=== PATIENT | male | born 1930 | race Two or more races ===

== ENCOUNTER 2017-01-02 14:25 | Inpatient (IN) | payer MEDICARE, OTHER ==
[~2017-01-02] VITALS: Ht 160 cm; Wt 41.7 kg
[2017-01-03] MEDS ORDERED: Z GUARD REMEDY PASTE 57 GM TUBE TOP PRN (17:30)
[2017-01-03] MEDS ORDERED: CARV3.122 PO ×2 (17:53)
[2017-01-03] MEDS ORDERED: DEXT15DR6 OP (17:53)
[2017-01-03] MEDS ORDERED: OXYC-128 PO ×2 (17:53→20:20)
[2017-01-03] MEDS ORDERED: ONDA4TAB5 GT (17:53)
[2017-01-03] MEDS ORDERED: MAGN30OR PO (17:53)
[2017-01-03] MEDS ORDERED: ZOLP5TAB8 PO (17:53)
[2017-01-03] MEDS ORDERED: FURO40SO PO (17:53)
[2017-01-03] MEDS ORDERED: LATA2.5D7 OP (17:53)
[2017-01-03] MEDS ORDERED: ASPI81TA44 PO (17:53)
[2017-01-03] MEDS ORDERED: OXYC-133 PO (17:53)
[2017-01-03] MEDS ORDERED: LISI2.5T2 PO (17:53)
[2017-01-03] MEDS ORDERED: ACET-2154 PO (17:53)
[2017-01-03] MEDS ORDERED: HYDR-3326 PO (17:53)
[2017-01-03] MEDS ORDERED: RIVA10TA PO (17:53)
[2017-01-03] MEDS ORDERED: POLY255P2 PO (17:53)
--- NOTE | 2017-01-03 19:30 | NUR ---
RECEIVED PATIENT AWAKE, ALERT, AND ORIENTED X3 WHEN SPOKEN TO BY HIS FAMILY IN [facility]. FOLLOWS COMMANDS.NO C/O DISCOMFORT OR PAIN AT THIS TIME. APPEARS COMFORTABLE IN BED. FAMILY AT BEDSIDE WITH ALL QUESTIONS ANSWERED.PLAN OF CARE DISCUSSED.ORIENTED PATIENT TO CALL LIGHT, TV, LIGHTS, AND ARU ROUTINE. CALL LIGHT WITHIN REACH AAT. BED ALARM ON AAT. SCD'S APPLIED BILATERALLY FOR VTE PROPHYLAXIS.
[2017-01-03 20:02] VITALS: BP 111/50
[2017-01-03] MEDS ORDERED: ALBU2.5V38 IH (20:12)
[2017-01-03] MEDS ORDERED: BISA-79 RC (20:12)
[2017-01-03] MEDS ORDERED: CARB1DRO5 OP (20:12)
[2017-01-03] MEDS ORDERED: MAGN400O6 PO (20:40)
[2017-01-03] MEDS ORDERED: BISA10SU8 RC (20:41)
[2017-01-03] MEDS ORDERED: OXYCODONE/APAP 5-325 MG TABLET PO PRN ×2 (20:45)
[2017-01-03] MEDS ORDERED: MAGNESIUM HYDROXIDE 30 ML LIQUID UDC PO PRN ×2 (20:45)
[2017-01-03] MEDS ORDERED: CARBOXYMETHYLCELLULOSE SODIUM DROPERETTE EACHEYE PRN (20:45)
[2017-01-03] MEDS ORDERED: BISACODYL 5 MG TABLET.DR PO PRN (20:45)
[2017-01-03] MEDS ORDERED: BISACODYL 10 MG SUPP.RECT RC PRN (20:45)
[2017-01-03] MEDS ORDERED: MIRALAX 17 GM POWD.PACK PO PRN (21:00)
[2017-01-03] MEDS: LATANOPROST OPHT DROP 2.5 ML BOTTLE EACHEYE SCH (21:00)
[2017-01-03] MEDS ORDERED: ZOLPIDEM 5 MG TABLET PO SCH (21:00)
--- NOTE | 2017-01-03 21:00 | NUR ---
2100 EYE GTTS NOT GIVEN PATIENT'S DAUGHTER HAS ALREADY GIVEN THEM.
--- NOTE | 2017-01-03 21:35 | NUR ---
REPORT GIVEN TO YENNIFER FALLON. CARE HANDED OFF OF THIS PATIENT AT THIS TIME
--- NOTE | 2017-01-04 02:06 | NUR ---
Patient complaining of pain from the condom catheter. Removed condom catheter and placed diaper. Ambien also given at this time for sleeplessness. Will continue to monitor
[2017-01-04 07:15] LABS: BASOPHILS % (AUTO) 0.2 % (0.0-2.0); EOSINOPHILS # (AUTO) 0.2 K/uL (0.0-0.7); EOSINOPHILS % (AUTO) 1.7 % (0.0-7.0); HEMATOCRIT 31.4 % (40-50); HEMOGLOBIN 10.7 G/DL (14.0-18.0); LYMPHOCYTES # (AUTO) 0.8 K/UL (0.8-4.8); LYMPHOCYTES % (AUTO) 7.2 % (20.5-51.5); MEAN CORPUSCULAR HGB CONC 34 g/dL (32.0-37.0); MEAN CORPUSCULAR VOLUME 90.8 FL (82.0-92.0); MONOCYTES # (AUTO) 0.7 K/UL (0.1-1.30); MONOCYTES % (AUTO) 6.7 % (0.0-11.0); NEUTROPHILS # (AUTO) 9.4 K/UL (1.8-8.9); NEUTROPHILS % (AUTO) 84.2 % (38.5-71.5); PLATELET COUNT (AUTO) 276 K/UL (150-450); RED BLOOD CELL COUNT(AUTO) 3.46 MIL/UL (4.7-6.1); WHITE BLOOD COUNT (AUTO) 11.1 K/UL (4.0-11.2)
[2017-01-04 07:52] LABS: CARBON DIOXIDE 30 mmol/L (21-32); CHLORIDE 98 mmol/L (98-107); CHOLESTEROL 67 mg/dL (<200); CREATININE 0.7 mg/dL (0.6-1.3); GLUCOSE 143 mg/dL (74-106); HDL CHOLESTEROL 34 mg/dL (40-60); PHOSPHOROUS 2.9 mg/dL (2.5-4.9); POTASSIUM 3.7 mmol/L (3.5-5.1); TRIGLYCERIDES 54 MG/DL (30-150); UREA NITROGEN, BLOOD 31 mg/dL (7-18)
[2017-01-04] MEDS: CARVEDILOL 3.125 MG TABLET PO SCH ×2 (08:00→16:46)
--- NOTE | 2017-01-04 08:30 | NUR ---
PATIENT HANDOFF REPORT FROM NIGHT NURSE. SLEEPING AT THIS TIME.
[2017-01-04] MEDS: ALBUTEROL SULFATE 2.5 MG/3 ML NEBU IH SCH ×5 (08:46→22:32)
[2017-01-04 09:00] VITALS: BP 133/68
[2017-01-04] MEDS ORDERED: POLYETHYLENE GLYCOL 3350 238 GM POWDER PO SCH (09:00)
[2017-01-04] MEDS ORDERED: FUROSEMIDE 40 MG/5 ML LIQUID UDC PO SCH (09:00)
--- NOTE | 2017-01-04 09:30 | NUR ---
PATIENT SLEEPING AT THIS TIME.
[2017-01-04 10:24] LABS: BAND % (MANUAL) 10 % (0-10); EOSINOPHILS % (MANUAL) 2 % (0-8); LYMPHOCYTES % (MANUAL) 8 % (20-40); MONOCYTES % (MANUAL) 4 % (2-10); NEUTROPHILS % (MANUAL) 76 % (42-75)
--- NOTE | 2017-01-04 10:30 | NUR ---
PATIENT SLEEPING AT THIS TIME.
--- NOTE | 2017-01-04 12:05 | NUR ---
PATIENT SLEEPING AT THIS TIME. FAMILY MEMBER, CHANDLER, AT BEDSIDE WITH PATIENT.
--- NOTE | 2017-01-04 12:38 | NUR ---
Civil Engineer SW met with patient at [facility] to assess pt needs and provide support. The patient was lethargic and unable to participate in the interview. The patient's daughter Lana Owens was at patient's bedside and was able to provide information. The patient is an 86 year old male who was admitted s/p fall fracturing his left hip. He underwent ORIF on 12/28/16 at [facility]. He was then transferred to ARU due to impaired mobility and functional decline. The patient was lethargic and appeared to be in pain as he was moaning during the interview with his eyes closed. Per daughter, the patient's sleep and appetite are normally good but he has not been able to eat today. Per daughter, the patient;s usually lives with his son Deep Owens at [[address] [place] [phone]] but has been living with his daughter Lana Owens for the last month at [[address] [place] [id number]]. Social history: The patient was born and raised in [facility] and grew up with his parents. The patient is a retired orthopedic surgeon. He was to his of 45 years and she last year. He has 2 daughters and 1 son. The patient's daughter denied any history of abuse or domestic violence. The patient's daughter denied any history of alcohol or drug abuse. The patient's daughter stated that the patient will return to home with her in [place] upon discharge. SW engaged in active listening and provided supportive counseling during the interview to address patient's depressive symptoms related to his decline in functioning. SW will continue to address issues of loss related to recent hospitalization. SW will encourage compliance with rehab goals. SW will be available as needed.
--- NOTE | 2017-01-04 13:20 | NUR ---
AM ADL CARE PATIENT SLIGHTLY AWAKE AT THIS TIME. FAMILY REQUEST FOR SUPPOSITORY FOR BM, THOUGHT PATIENT MAY BE TRYING TO HAVE BM.
--- NOTE | 2017-01-04 14:37 | NUR ---
REHAB TEAM CONFERENCE 01/04/17
[2017-01-04] MEDS ORDERED: ZOLPIDEM 5 MG TABLET PO PRN (15:15)
--- NOTE | 2017-01-04 16:00 | NUR ---
PATIENT AWAKE AT THIS TIME. VISITING WITH FAMILY.
--- NOTE | 2017-01-04 16:30 | NUR ---
GIVEN ASPIRIN, LASIX, AND XARELTO. HELD COREG FOR PM AND AM WELL LISINOPRIL DUE TO LETHARGY.
[2017-01-04 16:32] VITALS: BP 126/62
[2017-01-04] MEDS: FUROSEMIDE 20 MG TABLET PO SCH (16:40)
[2017-01-04] MEDS: ASPIRIN EC 81 MG TABLET.DR PO SCH (16:40)
[2017-01-04] MEDS: LISINOPRIL 5 MG TABLET PO SCH (16:41)
[2017-01-04] MEDS: RIVAROXABAN 10 MG TABLET PO SCH (16:46)
--- NOTE | 2017-01-04 17:00 | NUR ---
VISIT WITH THERAPY AT BEDSIDE TEACHING FAMILY AT THIS TIME.
--- NOTE | 2017-01-04 18:39 | NUR ---
HANDOFF ENDORSEMENT REPORT TO NIGHT NURSE. PATIENT NEEDS URINALYSIS AND URINE CULTURE.
[2017-01-04 20:05] VITALS: BP 138/77
[2017-01-04 20:49] LABS: *BILIRUBIN,URIN NEGATIVE (NEGATIVE); *BLOOD, URINE 3+ (NEGATIVE); *CLARITY,URINE CLOUDY (CLEAR); *COLOR,URINE YELLOW (YELLOW); *KETONES,URINE NEGATIVE (NEGATIVE); *PROTEIN,URINE 1+ (NEGATIVE); LEUKOCYTE ESTERASE ,URINE 1+ (NEGATIVE); NITRITE, URINE NEGATIVE (NEGATIVE); UGLUCOSE NEGATIVE (NEGATIVE)
[2017-01-04 20:59] LABS: BACTERIA,URINE MANY /HPF (NONE SEEN); WBC,URINE 80-100 /HPF (0-3)
[2017-01-04] MEDS: DOCUSATE SODIUM 100 MG CAPSULE PO SCH (21:10)
[2017-01-04] MEDS: LATANOPROST OPHT DROP 2.5 ML BOTTLE EACHEYE SCH (21:10)
[2017-01-05] MEDS: ACETAMINOPHEN 325 MG TABLET PO PRN (01:08)
[2017-01-05] MEDS: ALBUTEROL SULFATE 2.5 MG/3 ML NEBU IH SCH ×6 (02:33→22:32)
[2017-01-05 07:31] LABS: BILIRUBIN,DIRECT 0.6 mg/dL (0.0-0.2); BILIRUBIN,TOTAL 3.3 mg/dL (0.2-1.0); TOTAL PROTEIN, SERUM 6.5 g/dL (6.4-8.2)
[2017-01-05 08:18] VITALS: BP 110/50
[2017-01-05] MEDS: ASPIRIN EC 81 MG TABLET.DR PO SCH (09:10)
[2017-01-05] MEDS: CARVEDILOL 3.125 MG TABLET PO SCH ×2 (09:10→16:51)
[2017-01-05] MEDS: FUROSEMIDE 20 MG TABLET PO SCH (09:10)
[2017-01-05] MEDS: DOCUSATE SODIUM 100 MG CAPSULE PO SCH ×2 (09:10→21:22)
[2017-01-05] MEDS: LISINOPRIL 5 MG TABLET PO SCH (09:11)
--- NOTE | 2017-01-05 09:15 | NUR ---
PATIENT TO THERAPY ROOM AT THIS TIME VIA WHEELCHAIR WITH FAMILY MEMBER CHANDLER AND THERAPIST
--- NOTE | 2017-01-05 11:15 | NUR ---
PAGE TO PROVIDER, DOCTOR BLAZE, FOLLOW UP ON URINE SPECIMEN RESULTS AND DAILY WEIGHT.
--- NOTE | 2017-01-05 13:00 | NUR ---
PATIENT COMPLAINT OF HEMORRHOIDAL BURNING AT THIS TIME TO IMCU SPECIALIST.
--- NOTE | 2017-01-05 15:00 | NUR ---
SON PRESENT WITH PATIENT. DISCUSSING WIFI CONNECTION FOR HIS APPLICATIONS ON HIS PHONE WITH STAFF MEMBER FROM [employer].
[2017-01-05 16:19] VITALS: BP 114/75
--- NOTE | 2017-01-05 16:45 | NUR ---
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
[2017-01-05] MEDS: RIVAROXABAN 10 MG TABLET PO SCH (16:52)
--- NOTE | 2017-01-05 17:30 | NUR ---
ASSESSMENT OF VITAL SIGNS. SITE OF DRESSING ON LEFT HIP CHANGE. WELL APPOXIMATED SITES X2 WITH MARIO ALBERTO INTACT. FAMILY ASKING ABOUT WHEN TO TAKE OUT. NOTIFIED TO DISCUSS WITH SURGEON DATE OF SURGERY WAS LAST 12/28/16.
--- NOTE | 2017-01-05 18:58 | NUR ---
Handoff report to night nurse at this time follow up urine results.
[2017-01-05 20:16] VITALS: BP 105/55
[2017-01-05] MEDS: SULFAMETH/TRIMETH 800/160 MG TABLET PO SCH (21:25)
[2017-01-05] MEDS: LATANOPROST OPHT DROP 2.5 ML BOTTLE EACHEYE SCH (21:25)
[2017-01-05] MEDS ORDERED: SULFAMETH/TRIMETH 800/160 MG TABLET ONE (21:36)
[2017-01-05] MEDS: HYDROCORTISONE RECTAL SUPP 25 MG EACH RC SCH (21:48)
[2017-01-05] MEDS ORDERED: HYDROCORTISONE RECTAL SUPP 25 MG EACH RC ONE (21:57)
[2017-01-06] MEDS: ALBUTEROL SULFATE 2.5 MG/3 ML NEBU IH SCH ×6 (00:15→20:55)
--- NOTE | 2017-01-06 07:15 | NUR ---
HANDOFF REPORT WITH NIGHT NURSE AT THIS TIME.
[2017-01-06 08:00] VITALS: BP 100/53
[2017-01-06] MEDS: HYDROCORTISONE RECTAL SUPP 25 MG EACH RC SCH ×2 (09:15→20:54)
[2017-01-06] MEDS: DOCUSATE SODIUM 100 MG CAPSULE PO SCH (09:16)
[2017-01-06] MEDS: ASPIRIN EC 81 MG TABLET.DR PO SCH (09:16)
[2017-01-06] MEDS: SULFAMETH/TRIMETH 800/160 MG TABLET PO SCH (09:16)
[2017-01-06] MEDS: FUROSEMIDE 20 MG TABLET PO SCH (09:21)
[2017-01-06] MEDS: CARVEDILOL 3.125 MG TABLET PO SCH ×2 (09:21→17:14)
[2017-01-06] MEDS: LISINOPRIL 5 MG TABLET PO SCH (09:22)
--- NOTE | 2017-01-06 09:45 | NUR ---
PATIENT TO OCCUPATIONAL THERAPY AT THIS TIME.
[2017-01-06 10:30] VITALS: BP 109/55
--- NOTE | 2017-01-06 11:00 | NUR ---
PATIENT RESTING IN BED AT THIS TIME.
[2017-01-06] MEDS: ACETAMINOPHEN 325 MG TABLET PO PRN (11:03)
--- NOTE | 2017-01-06 12:30 | NUR ---
PATIENT GIVEN NITROFURANTOIN. FAMILY EDUCATION TO CHANDLER, AT BEDSIDE REGARDING SIDE EFFECTS AND BACTERIA, E.COLI, PRESENT IN URINE AND PROTECTION MEASURES. SHE REQUESTS PROBIOTICS FOR PATIENT WHILE ON ANTIBIOTICS. NOTIFIED CHANDLER PHP LAMP DEVELOPER WOULD DISCUSS WITH PROVIDER DURING ROUNDS.
[2017-01-06] MEDS: NITROFURANTOIN/NITROFURAN MAC 100 MG CAPSULE PO SCH ×2 (12:31→20:49)
[2017-01-06 12:38] LABS: BASOPHILS % (AUTO) 0.1 % (0.0-2.0); EOSINOPHILS # (AUTO) 0.1 K/uL (0.0-0.7); EOSINOPHILS % (AUTO) 1.9 % (0.0-7.0); HEMATOCRIT 31.9 % (40-50); HEMOGLOBIN 10.6 G/DL (14.0-18.0); LYMPHOCYTES # (AUTO) 0.7 K/UL (0.8-4.8); LYMPHOCYTES % (AUTO) 9.1 % (20.5-51.5); MEAN CORPUSCULAR HEMOGLOBIN 30.5 UUG (27.0-31.0); MEAN CORPUSCULAR HGB CONC 33 g/dL (32.0-37.0); MEAN CORPUSCULAR VOLUME 91.6 FL (82.0-92.0); MONOCYTES # (AUTO) 0.6 K/UL (0.1-1.30); MONOCYTES % (AUTO) 8.6 % (0.0-11.0); NEUTROPHILS # (AUTO) 5.8 K/UL (1.8-8.9); NEUTROPHILS % (AUTO) 80.3 % (38.5-71.5); RED BLOOD CELL COUNT(AUTO) 3.48 MIL/UL (4.7-6.1)
--- NOTE | 2017-01-06 12:45 | NUR ---
PATIENT ASSISTED TO SEATED POSITION WITH PHYSICAL THERAPIST IN WHEELCHAIR AT THIS TIME.
[2017-01-06 12:46] LABS: CARBON DIOXIDE 29 mmol/L (21-32); CHLORIDE 95 mmol/L (98-107); CREATININE 0.9 mg/dL (0.6-1.3); GLUCOSE 144 mg/dL (74-106); MAGNESIUM 1.9 mg/dL (1.8-2.4); PHOSPHOROUS 3.4 mg/dL (2.5-4.9); POTASSIUM 4.2 mmol/L (3.5-5.1); UREA NITROGEN, BLOOD 33 mg/dL (7-18)
[2017-01-06 12:48] LABS: PLATELET COUNT (AUTO) 394 K/UL (150-450); WHITE BLOOD COUNT (AUTO) 7.3 K/UL (4.0-11.2)
[2017-01-06 13:01] LABS: BAND % (MANUAL) 13 % (0-10); EOSINOPHILS % (MANUAL) 1 % (0-8); LYMPHOCYTES % (MANUAL) 6 % (20-40); METAMYELOCYTES % 1 % (0-1); MONOCYTES % (MANUAL) 12 % (2-10); NEUTROPHILS % (MANUAL) 67 % (42-75)
--- NOTE | 2017-01-06 13:23 | NUR ---
PATIENT AT PHYSICAL THERAPY AT THIS TIME.
--- NOTE | 2017-01-06 14:44 | NUR ---
SON OF PATIENT ASKING ABOUT SLOWING THE BOWEL MOVEMENT DOWN AT THIS TIME. ALSO REQUESTING COURSE OF PROBIOTICS WITH ANTIBIOTICS. PATIENT WALKING IN HALLWAY WITH TWO PERSON ASSIST AND WALKER.
--- NOTE | 2017-01-06 17:00 | NUR ---
Visit with Doctor Renata, Georgi, and Anil at bedside. Requests for probiotics and stool softener orders per Doctor Yanez. Doctor Yanez also requests all weights in am at same time with floor scale only.
[2017-01-06 17:03] VITALS: BP 108/60
[2017-01-06] MEDS: RIVAROXABAN 10 MG TABLET PO SCH (17:14)
[2017-01-06] MEDS: ACIDOPHILUS/BULGARICUS CHEW TAB PO SCH (18:10)
--- NOTE | 2017-01-06 18:36 | NUR ---
Handoff report for night nurse.
[2017-01-06 20:12] VITALS: BP 115/64
[2017-01-06] MEDS: LATANOPROST OPHT DROP 2.5 ML BOTTLE EACHEYE SCH (20:49)
[2017-01-07] MEDS: ALBUTEROL SULFATE 2.5 MG/3 ML NEBU IH SCH ×6 (03:30→22:35)
[2017-01-07 07:58] VITALS: BP 126/73
--- NOTE | 2017-01-07 09:00 | NUR ---
HANDOFF ROUNDS 7AM HOUR WITH NIGHT NURSE. PATIENT TOLERATED BREAKFAST WELL. ASSIST WITH BRIEF CHANGE WITH HEAVY EQUIPMENT DIESEL MECHANIC. AM MEDICATION PASS.
[2017-01-07] MEDS: FUROSEMIDE 20 MG TABLET PO SCH (09:07)
[2017-01-07] MEDS: ACIDOPHILUS/BULGARICUS CHEW TAB PO SCH ×2 (09:07→18:53)
[2017-01-07] MEDS: CARVEDILOL 3.125 MG TABLET PO SCH ×2 (09:07→18:52)
[2017-01-07] MEDS: HYDROCORTISONE RECTAL SUPP 25 MG EACH RC SCH ×2 (09:08→21:10)
[2017-01-07] MEDS: LISINOPRIL 5 MG TABLET PO SCH (09:08)
[2017-01-07] MEDS: NITROFURANTOIN/NITROFURAN MAC 100 MG CAPSULE PO SCH ×2 (09:08→21:07)
[2017-01-07] MEDS: ASPIRIN EC 81 MG TABLET.DR PO SCH (09:08)
[2017-01-07] MEDS ORDERED: DOCUSATE SODIUM 100 MG CAPSULE PO SCH (10:00)
--- NOTE | 2017-01-07 10:00 | NUR ---
DOCTOR BRIEN ROUNDS AT THIS TIME.
--- NOTE | 2017-01-07 11:00 | NUR ---
PATIENT UP TO WHEELCHAIR AT THIS TIME. DAUGHTER AND SON AT BEDSIDE.
--- NOTE | 2017-01-07 13:00 | NUR ---
PATIENT ROUNDS. SCD'S REAPPLIED. CALL ZIEGLER WITHIN REACH. BED IN LOW POSITION.
--- NOTE | 2017-01-07 15:00 | NUR ---
PATIENT PROGRESS MADE ON PHYSICAL THERAPY TODAY PER FRANSISCO AT THIS TIME. CHANGED BRIEF. APPLIED HEMMORHOID CREAM PER FAMILY REQUEST.
--- NOTE | 2017-01-07 17:29 | NUR ---
PATIENT DINNER TRAY PASS AT THIS TIME.
[2017-01-07] MEDS: RIVAROXABAN 10 MG TABLET PO SCH (18:55)
[2017-01-07] MEDS: NYSTATIN SUSPENSION 5 ML LIQUID UDC PO SCH (19:12)
--- NOTE | 2017-01-07 19:38 | NUR ---
HANDOFF REPORT FOR NIGHT NURSE.
--- NOTE | 2017-01-07 20:00 | NUR ---
PATIENT IN ROOM LAYING DOWN ON BED A/OX4,ABLE TO FOLLOW COMMANDS. DRESSING ON LEFT HIP CLEAN AND INTACT. NERVE AND CHECKS WITHIN NORMAL LIMIT.PLACED ON ISOLATION PROTOCOL DUE TO ESBL + URINE
[2017-01-07 20:01] VITALS: BP 93/52
[2017-01-07] MEDS: LATANOPROST OPHT DROP 2.5 ML BOTTLE EACHEYE SCH (21:10)
--- NOTE | 2017-01-07 23:45 | NUR ---
RECEIVED PATIENT SLEEPING IN BED. NO ACUTE DISTRESS NOTED. CONTACT PRECAUTION BECAUSE OF ESBL IN URINE. SAFETY INITIATED. CALL LIGHT WITHIN REACH.
[2017-01-08] MEDS: ALBUTEROL SULFATE 2.5 MG/3 ML NEBU IH SCH ×6 (02:45→22:37)
[2017-01-08] MEDS: NYSTATIN SUSPENSION 5 ML LIQUID UDC PO SCH ×3 (05:02→18:24)
--- NOTE | 2017-01-08 06:54 | NUR ---
NO CHANGES T/O SHIFT. NO ACUTE DISTRESS NOTED. PATIENT CONTINUES TO TRY AND REMOVE DVT PUMPS, SURGICAL SITE DRESSING AND HOSPITAL GOWN. RE-ORIENTED NECESSARY. O2 2L NC. PATIENT REMAINS CONFUSED. DRESSING CHANGE PROVIDED. DRESSING C/D/I. SAFETY AND COMFORT MEASURES MAINTAINED T/O SHIFT. ALL NEEDS MET.
[2017-01-08 08:45] VITALS: BP 124/72
[2017-01-08 08:54] LABS: CARBON DIOXIDE 28 mmol/L (21-32); CHLORIDE 96 mmol/L (98-107); GLUCOSE 129 mg/dL (74-106); UREA NITROGEN, BLOOD 28 mg/dL (7-18)
[2017-01-08] MEDS: LISINOPRIL 5 MG TABLET PO SCH (09:06)
[2017-01-08] MEDS: ACIDOPHILUS/BULGARICUS CHEW TAB PO SCH ×2 (09:06→18:26)
[2017-01-08] MEDS: FUROSEMIDE 20 MG TABLET PO SCH (09:08)
[2017-01-08] MEDS: NITROFURANTOIN/NITROFURAN MAC 100 MG CAPSULE PO SCH ×2 (09:08→21:49)
[2017-01-08] MEDS: ASPIRIN EC 81 MG TABLET.DR PO SCH (09:12)
[2017-01-08] MEDS: HYDROCORTISONE RECTAL SUPP 25 MG EACH RC SCH ×2 (09:12→21:00)
[2017-01-08] MEDS: CARVEDILOL 3.125 MG TABLET PO SCH ×2 (09:12→18:26)
[2017-01-08] MEDS: RIVAROXABAN 10 MG TABLET PO SCH (18:25)
[2017-01-08 20:00] VITALS: BP 122/56
[2017-01-08] MEDS: LATANOPROST OPHT DROP 2.5 ML BOTTLE EACHEYE SCH (21:49)
[2017-01-09] MEDS: NYSTATIN SUSPENSION 5 ML LIQUID UDC PO SCH ×4 (01:11→17:11)
[2017-01-09] MEDS: ALBUTEROL SULFATE 2.5 MG/3 ML NEBU IH SCH ×4 (02:53→15:08)
[2017-01-09] MEDS: ACIDOPHILUS/BULGARICUS CHEW TAB PO SCH ×2 (06:56→17:09)
[2017-01-09 07:10] VITALS: BP 119/61
--- NOTE | 2017-01-09 07:36 | NUR ---
Slept most of the night,no distress noted or voiced
--- NOTE | 2017-01-09 07:40 | NUR ---
REAL ESTATE PARALEGAL NURSE DID NOT RECORD SCHEDULED DAILY WEIGHTS. REAL ESTATE PARALEGAL NURSE STATES THAT SHE DID NOT SEE THE ORDER. WILL REASSESS FOR ANY WEIGHT DURING SHIFT.
[2017-01-09] MEDS: ASPIRIN EC 81 MG TABLET.DR PO SCH (08:40)
[2017-01-09] MEDS: CARVEDILOL 3.125 MG TABLET PO SCH ×2 (08:40→17:09)
[2017-01-09] MEDS: HYDROCORTISONE RECTAL SUPP 25 MG EACH RC SCH ×2 (08:41→09:00)
[2017-01-09] MEDS: NITROFURANTOIN/NITROFURAN MAC 100 MG CAPSULE PO SCH ×2 (08:41→20:59)
[2017-01-09] MEDS: LISINOPRIL 5 MG TABLET PO SCH (08:41)
[2017-01-09] MEDS: FUROSEMIDE 20 MG TABLET PO SCH (08:41)
--- NOTE | 2017-01-09 09:03 | NUR ---
PT NOT GIVEN ANUSOL SUPPOSITORY. PT REFUSED MEDICATION BECAUSE PT STATES THAT HE HAS BEEN GOING BM REGULARLY AND WISHES NOT TO HAVE IT. WILL REASSESS FOR SIGNS OF CONSTIPATION.
[2017-01-09] MEDS: RIVAROXABAN 10 MG TABLET PO SCH (17:11)
[2017-01-09 20:00] VITALS: BP 93/48
[2017-01-09 20:04] VITALS: BP 93/48
[2017-01-09] MEDS: LATANOPROST OPHT DROP 2.5 ML BOTTLE EACHEYE SCH (21:00)
[2017-01-10] MEDS: NYSTATIN SUSPENSION 5 ML LIQUID UDC PO SCH ×4 (00:49→17:55)
--- NOTE | 2017-01-10 06:50 | NUR ---
Slept most of the night,incontinent of urine.Turned from side to side every 2 hrs
[2017-01-10] MEDS: ACIDOPHILUS/BULGARICUS CHEW TAB PO SCH ×2 (06:59→17:54)
[2017-01-10 07:15] VITALS: BP 123/74
[2017-01-10 08:06] LABS: EOSINOPHILS # (AUTO) 0.2 K/uL (0.0-0.7); EOSINOPHILS % (AUTO) 2.3 % (0.0-7.0); HEMATOCRIT 33.7 % (40-50); HEMOGLOBIN 11.3 G/DL (14.0-18.0); LYMPHOCYTES % (AUTO) 12.1 % (20.5-51.5); MEAN CORPUSCULAR HEMOGLOBIN 30.2 UUG (27.0-31.0); MEAN CORPUSCULAR HGB CONC 34 g/dL (32.0-37.0); MEAN CORPUSCULAR VOLUME 89.7 FL (82.0-92.0); MONOCYTES # (AUTO) 0.7 K/UL (0.1-1.30); MONOCYTES % (AUTO) 8.1 % (0.0-11.0); NEUTROPHILS # (AUTO) 6.3 K/UL (1.8-8.9); NEUTROPHILS % (AUTO) 77.5 % (38.5-71.5); PLATELET COUNT (AUTO) 462 K/UL (150-450); RED BLOOD CELL COUNT(AUTO) 3.75 MIL/UL (4.7-6.1); WHITE BLOOD COUNT (AUTO) 8.2 K/UL (4.0-11.2)
[2017-01-10 08:08] LABS: CARBON DIOXIDE 25 mmol/L (21-32); CHLORIDE 93 mmol/L (98-107); CREATININE 0.7 mg/dL (0.6-1.3); GLUCOSE 101 mg/dL (74-106); MAGNESIUM 1.8 mg/dL (1.8-2.4); PHOSPHOROUS 3.1 mg/dL (2.5-4.9); POTASSIUM 4.1 mmol/L (3.5-5.1); UREA NITROGEN, BLOOD 22 mg/dL (7-18)
[2017-01-10] MEDS: NITROFURANTOIN/NITROFURAN MAC 100 MG CAPSULE PO SCH ×2 (08:51→21:05)
[2017-01-10] MEDS: CARVEDILOL 3.125 MG TABLET PO SCH ×2 (08:51→17:54)
[2017-01-10] MEDS: ASPIRIN EC 81 MG TABLET.DR PO SCH (08:51)
[2017-01-10] MEDS: LISINOPRIL 5 MG TABLET PO SCH (08:55)
[2017-01-10] MEDS: RIVAROXABAN 10 MG TABLET PO SCH (18:01)
[2017-01-10 20:00] VITALS: BP 109/59
[2017-01-10] MEDS: LATANOPROST OPHT DROP 2.5 ML BOTTLE EACHEYE SCH (21:06)
[2017-01-11] MEDS: NYSTATIN SUSPENSION 5 ML LIQUID UDC PO SCH ×4 (00:04→16:40)
--- NOTE | 2017-01-11 05:52 | NUR ---
Slept most of the night, turned every 2hrs
[2017-01-11] MEDS: ACIDOPHILUS/BULGARICUS CHEW TAB PO SCH ×2 (07:00→16:40)
[2017-01-11 07:15] VITALS: BP 126/65
--- NOTE | 2017-01-11 08:00 | NUR ---
Handoff rounds with report from night nurse last hour.
[2017-01-11 08:07] LABS: CORTISOL 18.8 ug/dL (.)
[2017-01-11 08:43] LABS: EOSINOPHILS # (AUTO) 0.2 K/uL (0.0-0.7); EOSINOPHILS % (AUTO) 2.6 % (0.0-7.0); HEMATOCRIT 33.4 % (40-50); HEMOGLOBIN 11.3 G/DL (14.0-18.0); LYMPHOCYTES # (AUTO) 1.1 K/UL (0.8-4.8); LYMPHOCYTES % (AUTO) 14.6 % (20.5-51.5); MEAN CORPUSCULAR HGB CONC 34 g/dL (32.0-37.0); MEAN CORPUSCULAR VOLUME 91.7 FL (82.0-92.0); MONOCYTES # (AUTO) 0.7 K/UL (0.1-1.30); MONOCYTES % (AUTO) 8.6 % (0.0-11.0); NEUTROPHILS # (AUTO) 5.7 K/UL (1.8-8.9); NEUTROPHILS % (AUTO) 74.2 % (38.5-71.5); PLATELET COUNT (AUTO) 486 K/UL (150-450); RED BLOOD CELL COUNT(AUTO) 3.64 MIL/UL (4.7-6.1); WHITE BLOOD COUNT (AUTO) 7.7 K/UL (4.0-11.2)
--- NOTE | 2017-01-11 09:55 | NUR ---
Patient given am medication. Will check blood pressure next hour and administer before lisinopril administration.
[2017-01-11] MEDS: NITROFURANTOIN/NITROFURAN MAC 100 MG CAPSULE PO SCH ×2 (10:13→20:48)
[2017-01-11] MEDS: FUROSEMIDE 20 MG TABLET PO SCH (10:14)
[2017-01-11] MEDS: CARVEDILOL 3.125 MG TABLET PO SCH ×2 (10:14→16:53)
[2017-01-11] MEDS: ASPIRIN EC 81 MG TABLET.DR PO SCH (10:14)
[2017-01-11 10:50] LABS: PHOSPHOROUS 2.8 mg/dL (2.5-4.9)
[2017-01-11 10:56] VITALS: BP 111/56
[2017-01-11] MEDS: LISINOPRIL 5 MG TABLET PO SCH (10:58)
--- NOTE | 2017-01-11 11:00 | NUR ---
Patient rounds at this time. Wound care photo day today. Two incision sites, well approximated. [place] remain.
--- NOTE | 2017-01-11 13:00 | NUR ---
Patient request to position back to bed after lunch at this time from seated position in a wheel chair.
--- NOTE | 2017-01-11 14:31 | NUR ---
REHAB TEAM CONFERENCE 01/11/17
--- NOTE | 2017-01-11 14:41 | NUR ---
Pass of coffee to patient at this time per request of family.
[2017-01-11] MEDS: ACETAMINOPHEN 325 MG TABLET PO PRN (16:40)
[2017-01-11] MEDS: RIVAROXABAN 10 MG TABLET PO SCH (16:48)
[2017-01-11 16:53] VITALS: BP 119/59
--- NOTE | 2017-01-11 17:47 | NUR ---
Jeff, Daughter and Son, of patient at bedside. All attended conference and pt got his wish to re-evaluate his hip with and x-ray status post open reduction internal fixation of left hip on 12/28/16 with Surgeon, Derek Fenton MD.
--- NOTE | 2017-01-11 19:00 | NUR ---
Handoff report to night nurse at this time.
--- NOTE | 2017-01-11 19:36 | NUR ---
Appears in good spirits,ambulating with pt
[2017-01-11 20:32] VITALS: BP 98/45
[2017-01-11] MEDS: LATANOPROST OPHT DROP 2.5 ML BOTTLE EACHEYE SCH (20:47)
--- NOTE | 2017-01-12 04:59 | NUR ---
Slept most of night,no distress noted or voiced
--- NOTE | 2017-01-12 05:00 | NUR ---
turned every 2 hrs
[2017-01-12] MEDS: ACIDOPHILUS/BULGARICUS CHEW TAB PO SCH ×2 (06:59→18:25)
[2017-01-12] MEDS: NYSTATIN SUSPENSION 5 ML LIQUID UDC PO SCH ×4 (06:59→18:26)
[2017-01-12 07:26] LABS: BASOPHILS % (AUTO) 0.1 % (0.0-2.0); EOSINOPHILS # (AUTO) 0.2 K/uL (0.0-0.7); EOSINOPHILS % (AUTO) 3.2 % (0.0-7.0); HEMATOCRIT 34.1 % (40-50); HEMOGLOBIN 11.2 G/DL (14.0-18.0); LYMPHOCYTES # (AUTO) 1.1 K/UL (0.8-4.8); LYMPHOCYTES % (AUTO) 16.2 % (20.5-51.5); MEAN CORPUSCULAR HEMOGLOBIN 30.4 UUG (27.0-31.0); MEAN CORPUSCULAR HGB CONC 33 g/dL (32.0-37.0); MEAN CORPUSCULAR VOLUME 92.4 FL (82.0-92.0); MONOCYTES # (AUTO) 0.6 K/UL (0.1-1.30); MONOCYTES % (AUTO) 8.8 % (0.0-11.0); NEUTROPHILS # (AUTO) 4.7 K/UL (1.8-8.9); NEUTROPHILS % (AUTO) 71.7 % (38.5-71.5); PLATELET COUNT (AUTO) 473 K/UL (150-450); RED BLOOD CELL COUNT(AUTO) 3.69 MIL/UL (4.7-6.1); WHITE BLOOD COUNT (AUTO) 6.6 K/UL (4.0-11.2)
[2017-01-12 07:31] LABS: CARBON DIOXIDE 26 mmol/L (21-32); CHLORIDE 93 mmol/L (98-107); CREATININE 0.6 mg/dL (0.6-1.3); GLUCOSE 108 mg/dL (74-106); MAGNESIUM 1.9 mg/dL (1.8-2.4); PHOSPHOROUS 2.9 mg/dL (2.5-4.9); POTASSIUM 4.3 mmol/L (3.5-5.1); UREA NITROGEN, BLOOD 17 mg/dL (7-18)
[2017-01-12 08:00] VITALS: BP 106/62
[2017-01-12] MEDS: CARVEDILOL 3.125 MG TABLET PO SCH ×2 (08:00→18:25)
[2017-01-12] MEDS: LISINOPRIL 5 MG TABLET PO SCH (08:29)
[2017-01-12] MEDS: NITROFURANTOIN/NITROFURAN MAC 100 MG CAPSULE PO SCH ×2 (08:29→21:08)
[2017-01-12] MEDS: ASPIRIN EC 81 MG TABLET.DR PO SCH (08:29)
[2017-01-12] MEDS: MULTIVIT, IRON, MIN NO. 8, FA TABLET PO SCH (08:29)
--- NOTE | 2017-01-12 08:35 | NUR ---
BP 106/ 62, NC 71. Lisinopril and Carvedilol held. Patient asymptomatic no SOB or complaints of chest pain.
[2017-01-12] MEDS: ACETAMINOPHEN 325 MG TABLET PO PRN (08:40)
--- NOTE | 2017-01-12 09:00 | NUR ---
Awake and alert. Up with occupational therapy. Patient requested for pain medication. With tolerable pain over left hip. Tylenol PRN given.
[2017-01-12] MEDS: RIVAROXABAN 10 MG TABLET PO SCH (17:59)
--- NOTE | 2017-01-12 18:44 | NUR ---
With family at beside. Tolerated therapy and diet well. Call light within reach
[2017-01-12 20:03] VITALS: BP 107/58
--- NOTE | 2017-01-12 20:31 | NUR ---
Wide awake,i good spirits,no distress noted or voiced
[2017-01-12] MEDS: LATANOPROST OPHT DROP 2.5 ML BOTTLE EACHEYE SCH (21:09)
--- NOTE | 2017-01-13 05:57 | NUR ---
no acute distress noted or voiced.Incontinent of urine.Turned every 2hrs
--- NOTE | 2017-01-13 05:58 | NUR ---
Slept most of the night
[2017-01-13] MEDS: NYSTATIN SUSPENSION 5 ML LIQUID UDC PO SCH ×5 (06:18→23:41)
[2017-01-13] MEDS: ACIDOPHILUS/BULGARICUS CHEW TAB PO SCH ×2 (06:18→17:40)
[2017-01-13 07:32] VITALS: BP 122/62
[2017-01-13] MEDS: CARVEDILOL 3.125 MG TABLET PO SCH ×2 (08:00→17:45)
[2017-01-13] MEDS: MULTIVIT, IRON, MIN NO. 8, FA TABLET PO SCH (09:02)
[2017-01-13] MEDS: NITROFURANTOIN/NITROFURAN MAC 100 MG CAPSULE PO SCH (09:02)
[2017-01-13] MEDS: FUROSEMIDE 20 MG TABLET PO SCH (09:02)
[2017-01-13] MEDS: LISINOPRIL 5 MG TABLET PO SCH (09:03)
[2017-01-13] MEDS: ASPIRIN EC 81 MG TABLET.DR PO SCH (09:03)
[2017-01-13] MEDS: RIVAROXABAN 10 MG TABLET PO SCH (17:40)
--- NOTE | 2017-01-13 17:47 | NUR ---
blood pressure medication not given. bp at 91/49 hr 60. pt is asymptomatic. no loc changes. family states that he can have salt due to decreased NA levels on lab. will reassess for complications.
--- NOTE | 2017-01-13 18:46 | NUR ---
pt visited by dr rojas . ordered urine random sodium and urine osmolality. urine sent today and pharmacy kept sample to use for tomorrow. sodium is low and blood pressure is low. md ordered to have family give pt salt. pt took meds as prescribed. no changes in loc. pt eat 50 percent of meals. will endorse new orders to seasonal sales associate nurse.
[2017-01-13 19:44] VITALS: BP 100/47
[2017-01-13] MEDS: ACETAMINOPHEN 325 MG TABLET PO PRN (19:48)
[2017-01-13] MEDS: LATANOPROST OPHT DROP 2.5 ML BOTTLE EACHEYE SCH (20:51)
--- NOTE | 2017-01-13 22:00 | NUR ---
received to care, lying in bed, in no acute distress, family at the bedside. PRN tylenol was given at 1947, for left hip pain, 5/10 on pain scale. by 2099, he reported good relief, 3/10. as of 2199, he appears to be asleep. no distress noted, call light in reach. will continue to monitor closely. Addendum: 01/14/17 at 0059 by MORE MCKEON LVN left hip dressing is clean/dry/intact
[2017-01-14] MEDS: NYSTATIN SUSPENSION 5 ML LIQUID UDC PO SCH ×4 (06:00→23:32)
--- NOTE | 2017-01-14 06:00 | NUR ---
is now awake. left hip dressing was changed. dressing and ahmet are clean/dry/intact. pt refused his AM nystatin.
[2017-01-14] MEDS: ACIDOPHILUS/BULGARICUS CHEW TAB PO SCH ×2 (06:08→17:21)
[2017-01-14 07:30] VITALS: BP 125/58
--- NOTE | 2017-01-14 08:00 | NUR ---
Discussed plan of care with pt re: fall precaution and constipation. Pt agreeable with plan of care. Pt able to make his needs known with min Welsh. Call light is within reach.
[2017-01-14] MEDS: CHOLECALCIFEROL 1,000 UNIT TABLET PO SCH (08:18)
[2017-01-14] MEDS: ASPIRIN EC 81 MG TABLET.DR PO SCH (08:18)
[2017-01-14] MEDS: MULTIVIT, IRON, MIN NO. 8, FA TABLET PO SCH (08:18)
[2017-01-14] MEDS: CARVEDILOL 3.125 MG TABLET PO SCH ×2 (08:22→17:28)
[2017-01-14] MEDS: LISINOPRIL 5 MG TABLET PO SCH (08:22)
[2017-01-14 08:45] LABS: ALANINE AMINOTRANSFERASE 18 U/L (16-63); ALKALINE PHOSPHATASE 123 U/L (50-136); ASPARTATE AMINOTRANSFERASE 23 U/L (15-37); BILIRUBIN,TOTAL 1.8 mg/dL (0.2-1.0); CARBON DIOXIDE 29 mmol/L (21-32); CHLORIDE 94 mmol/L (98-107); CREATININE 0.7 mg/dL (0.6-1.3); GLUCOSE 109 mg/dL (74-106); MAGNESIUM 1.9 mg/dL (1.8-2.4); POTASSIUM 4.2 mmol/L (3.5-5.1); TOTAL PROTEIN, SERUM 6.6 g/dL (6.4-8.2); UREA NITROGEN, BLOOD 17 mg/dL (7-18); URIC ACID 3.2 mg/dL (3.5-7.2)
--- NOTE | 2017-01-14 12:00 | NUR ---
Received order for stat urine. asked daughter if ok to do an in and out cath to get specimen due to pt is incontinent. Per pt and family hold on in and out cath and will attempt to urinate with physical therapy comes and walks with pt. Call light is within reach.
[2017-01-14 12:11] LABS: RENIN 0.779 ng/mL/hr (0.167-5.380)
[2017-01-14] MEDS: ACETAMINOPHEN 325 MG TABLET PO PRN (12:45)
[2017-01-14] MEDS ORDERED: DOCUSATE SODIUM 100 MG CAPSULE PO SCH (13:00)
[2017-01-14] MEDS ORDERED: MIRALAX 17 GM POWD.PACK PO PRN (13:00)
--- NOTE | 2017-01-14 13:00 | NUR ---
Pt and daughter refused colace. "he might get diarrhea from that.
--- NOTE | 2017-01-14 15:00 | NUR ---
pT had a large bm. Sent urine as ordered to lab. Pt tolerated physical therapy. Put pt back in bed.
[2017-01-14 15:07] LABS: *BILIRUBIN,URIN NEGATIVE (NEGATIVE); *BLOOD, URINE 2+ (NEGATIVE); *COLOR,URINE DARK YELLOW (YELLOW); *KETONES,URINE NEGATIVE (NEGATIVE); *PROTEIN,URINE NEGATIVE (NEGATIVE); LEUKOCYTE ESTERASE ,URINE NEGATIVE (NEGATIVE); NITRITE, URINE NEGATIVE (NEGATIVE); PH,URINE 6.5 (5.0-8.0); UGLUCOSE NEGATIVE (NEGATIVE)
[2017-01-14] MEDS: SENNOSIDES 1 TABLET PO SCH (15:30)
[2017-01-14 15:37] LABS: *CLARITY,URINE SLIGHTLY HAZY (CLEAR)
[2017-01-14 15:40] LABS: BACTERIA,URINE MODERATE /HPF (NONE SEEN); WBC,URINE 0-3 /HPF (0-3)
[2017-01-14 15:41] LABS: MUCUS,URINE MODERATE /LPF (0-FEW)
[2017-01-14] MEDS: RIVAROXABAN 10 MG TABLET PO SCH (17:23)
--- NOTE | 2017-01-14 18:42 | NUR ---
Dr salmeron saw pt. Awaiting further orders. Call light is within reach. No fall noted this shift
--- NOTE | 2017-01-14 19:30 | NUR ---
PT ALERT AND ORIENTED IN BED. NO DISTRESS NOTED. ALL NEEDS MET. FAMILY AT BEDSIDE. SAFETY MAINTAINED. CALL LIGHT WITHIN REACH. WILL CONTINUE TO MONITOR.
[2017-01-14] MEDS: LATANOPROST OPHT DROP 2.5 ML BOTTLE EACHEYE SCH (20:22)
[2017-01-14 21:03] VITALS: BP 102/49
[2017-01-15] MEDS: ACIDOPHILUS/BULGARICUS CHEW TAB PO SCH ×2 (05:19→17:56)
[2017-01-15] MEDS: NYSTATIN SUSPENSION 5 ML LIQUID UDC PO SCH ×3 (05:20→17:56)
--- NOTE | 2017-01-15 06:52 | NUR ---
PT ALERT AND ORIENTED IN BED. NO DISTRESS NOTED. DAILY WT 90.6LBS. CLEAN AND DRY. DRESSING CHANGED. SAFETY MAINTAINED. CALL LIGHT WITHIN REACH.
[2017-01-15 07:20] VITALS: BP 120/60
[2017-01-15] MEDS: CARVEDILOL 3.125 MG TABLET PO SCH ×2 (08:00→17:57)
[2017-01-15] MEDS: MULTIVIT, IRON, MIN NO. 8, FA TABLET PO SCH (08:35)
[2017-01-15] MEDS: SENNOSIDES 1 TABLET PO SCH (08:35)
[2017-01-15] MEDS: ASPIRIN EC 81 MG TABLET.DR PO SCH (08:35)
[2017-01-15] MEDS: FUROSEMIDE 20 MG TABLET PO SCH (08:35)
[2017-01-15] MEDS: CHOLECALCIFEROL 1,000 UNIT TABLET PO SCH (08:35)
[2017-01-15] MEDS: LISINOPRIL 5 MG TABLET PO SCH (09:00)
--- NOTE | 2017-01-15 09:17 | NUR ---
bp meds not given due to possible side effects of hypotension. pt known to have hypotensive episodes. bp @ 120/60 hr 98. will monitor for complications.
[2017-01-15] MEDS: ACETAMINOPHEN 325 MG TABLET PO PRN (12:52)
[2017-01-15 15:10] LABS: ALDOSTERONE 4.1 ng/dL (0.0-30.0)
[2017-01-15] MEDS: RIVAROXABAN 10 MG TABLET PO SCH (17:57)
--- NOTE | 2017-01-15 18:56 | NUR ---
pt continued to have low sodium levels. instructed to give extra salt on meals. swallow precautions implement and split meds. pt took meds but held nystatin to a later time. pt assisted on trasnfers and complained of no pain. pt had bm and voided. will endorse new orders to welder 2nd shift nurse.
[2017-01-15] MEDS: LATANOPROST OPHT DROP 2.5 ML BOTTLE EACHEYE SCH (20:25)
[2017-01-15 20:32] VITALS: BP 113/55
[2017-01-15] MEDS ORDERED: ALPRAZOLAM 0.25 MG TABLET PO PRN (21:00)
[2017-01-15] MEDS ORDERED: ALPRAZOLAM 0.25 MG TABLET ONE (21:58)
[2017-01-16] MEDS: ACIDOPHILUS/BULGARICUS CHEW TAB PO SCH ×2 (06:03→17:38)
--- NOTE | 2017-01-16 06:47 | NUR ---
PT SLEPT WELL, REQUESTED XANAX LAST NIGHT. NO BM DIAPER CHANGED ,KEPT CLEAN AND DRY. INCISION LEFT OPEN TO AIR WITH MARIO ALBERTO INTACT, SKIN STILL BRUISING.VSS,AFEBRILE, KEPT ATTENDED, CALL LIGHT AT REACHED.
[2017-01-16 07:03] LABS: CARBON DIOXIDE 29 mmol/L (21-32); CHLORIDE 95 mmol/L (98-107); CREATININE 0.6 mg/dL (0.6-1.3); GLUCOSE 102 mg/dL (74-106); PHOSPHOROUS 3.4 mg/dL (2.5-4.9); POTASSIUM 4.6 mmol/L (3.5-5.1); UREA NITROGEN, BLOOD 18 mg/dL (7-18); URIC ACID 3.5 mg/dL (3.5-7.2)
[2017-01-16 07:50] VITALS: BP 114/63
[2017-01-16] MEDS: SENNOSIDES 1 TABLET PO SCH (08:52)
[2017-01-16] MEDS: MULTIVIT, IRON, MIN NO. 8, FA TABLET PO SCH (08:52)
[2017-01-16] MEDS: ASPIRIN EC 81 MG TABLET.DR PO SCH (08:52)
[2017-01-16] MEDS: CHOLECALCIFEROL 1,000 UNIT TABLET PO SCH (08:52)
[2017-01-16] MEDS: LISINOPRIL 5 MG TABLET PO SCH (08:54)
[2017-01-16] MEDS: CARVEDILOL 3.125 MG TABLET PO SCH ×2 (09:02→17:43)
[2017-01-16] MEDS: RIVAROXABAN 10 MG TABLET PO SCH (17:38)
--- NOTE | 2017-01-16 18:00 | NUR ---
patient alert and ox3, able to verbalized needs. Assisted to to restroom with min assist using FWW. Compliant with medications. 1800 patient B/P low 94/50 Hr-59, coreg med as ordered held. Patient asymptomatic , denies dizziness Oral flds. encouraged as tolerated.
--- NOTE | 2017-01-16 19:30 | NUR ---
Receive pt on bed asleep. Son at bedside during this time. No acute distress noted. Denies pain. DVT pumps on. Breathing even and unlabored with normal respirations. Call light within reach. All needs attended. Will continue to monitor.
[2017-01-16 21:06] VITALS: BP 100/49
[2017-01-16] MEDS: LATANOPROST OPHT DROP 2.5 ML BOTTLE EACHEYE SCH (21:09)
[2017-01-17] MEDS: ACIDOPHILUS/BULGARICUS CHEW TAB PO SCH ×2 (06:24→18:21)
--- NOTE | 2017-01-17 06:53 | NUR ---
Patient slept well throughout the shift. No acute distress noted. No complaints of pain. No SOB. All due meds given as ordered and well tolerated. Kept clean, dry and comfortable. Call light within reach. All needs attended. Will continue to monitor.
[2017-01-17 08:00] VITALS: BP 125/61
[2017-01-17] MEDS: CARVEDILOL 3.125 MG TABLET PO SCH ×2 (08:41→18:21)
[2017-01-17] MEDS: FUROSEMIDE 20 MG TABLET PO SCH (08:42)
[2017-01-17] MEDS: MULTIVIT, IRON, MIN NO. 8, FA TABLET PO SCH (08:42)
[2017-01-17] MEDS: CHOLECALCIFEROL 1,000 UNIT TABLET PO SCH (08:42)
[2017-01-17] MEDS: SENNOSIDES 1 TABLET PO SCH (08:42)
[2017-01-17] MEDS: ASPIRIN EC 81 MG TABLET.DR PO SCH (08:42)
[2017-01-17] MEDS: LISINOPRIL 5 MG TABLET PO SCH (08:42)
[2017-01-17] MEDS: RIVAROXABAN 10 MG TABLET PO SCH (18:34)
[2017-01-17 20:29] VITALS: BP 101/47
[2017-01-17] MEDS: LATANOPROST OPHT DROP 2.5 ML BOTTLE EACHEYE SCH (21:32)
[2017-01-18] MEDS: ACIDOPHILUS/BULGARICUS CHEW TAB PO SCH ×2 (06:31→17:04)
--- NOTE | 2017-01-18 07:03 | NUR ---
Patient slept well. Able to make needs known. No acute distress noted. Breathing even and unlabored with normal respirations. Denies pain. Kept clean, dry and comfortable. Call light within reach. All needs attended
[2017-01-18 08:00] VITALS: BP 114/57
[2017-01-18] MEDS: SENNOSIDES 1 TABLET PO SCH (09:00)
[2017-01-18] MEDS: MULTIVIT, IRON, MIN NO. 8, FA TABLET PO SCH (09:33)
[2017-01-18] MEDS: ASPIRIN EC 81 MG TABLET.DR PO SCH (09:33)
[2017-01-18] MEDS: CHOLECALCIFEROL 1,000 UNIT TABLET PO SCH (09:33)
[2017-01-18] MEDS: CARVEDILOL 3.125 MG TABLET PO SCH ×2 (09:34→17:04)
[2017-01-18] MEDS: LISINOPRIL 5 MG TABLET PO SCH (09:34)
[2017-01-18] MEDS: ACETAMINOPHEN 325 MG TABLET PO PRN (09:42)
--- NOTE | 2017-01-18 14:49 | NUR ---
Rehab Team Conference 01/18/17
[2017-01-18] MEDS: RIVAROXABAN 10 MG TABLET PO SCH (17:07)
--- NOTE | 2017-01-18 18:12 | NUR ---
Dr. Narayan in the unit to examine patient, rounds made, and report given to him at bedside. Pt's family at bedside and updated by of current condition and for planned dcd tomorrow; prescription for xarelto written by . see pt's file.
--- NOTE | 2017-01-18 20:00 | NUR ---
RECEIVED PT. VERBALLY RESPONSIVE BUT FORGETFULL. DENIES PAIN. L HIP INC. INTACT & DRY W/ STERI STRIPS. VOIDING USING URINAL. NOT IN ANY DISTRESS.
[2017-01-18 20:40] VITALS: BP 94/54
[2017-01-18] MEDS: LATANOPROST OPHT DROP 2.5 ML BOTTLE EACHEYE SCH (21:30)
[2017-01-19] MEDS: ACIDOPHILUS/BULGARICUS CHEW TAB PO SCH ×2 (05:55→17:23)
--- NOTE | 2017-01-19 06:00 | NUR ---
DENIES PAIN. NOT IN ANY DISTRESS.
[2017-01-19 08:00] VITALS: BP 120/62
[2017-01-19] MEDS: FUROSEMIDE 20 MG TABLET PO SCH (09:59)
[2017-01-19] MEDS: ASPIRIN EC 81 MG TABLET.DR PO SCH (09:59)
[2017-01-19] MEDS: CARVEDILOL 3.125 MG TABLET PO SCH ×2 (09:59→17:37)
[2017-01-19] MEDS: SENNOSIDES 1 TABLET PO SCH (10:00)
[2017-01-19] MEDS: LISINOPRIL 5 MG TABLET PO SCH (10:00)
[2017-01-19] MEDS: MULTIVIT, IRON, MIN NO. 8, FA TABLET PO SCH (10:01)
[2017-01-19] MEDS: CHOLECALCIFEROL 1,000 UNIT TABLET PO SCH (10:01)
[2017-01-19] MEDS: RIVAROXABAN 10 MG TABLET PO SCH (17:27)
[2017-01-19 17:37] VITALS: BP 120/60
--- NOTE | 2017-01-19 19:35 | NUR ---
Patient discharged. Paperwork completed by dayshift nurse. Patient left facility at 1935 accompanied by family.
== END 2017-01-19 19:35 | disposition home health service (06) | DRG 559 ==
PROVIDERS: ADMIT Physical Medicine & Rehabilitation Pain Medicine; ATTEND Physical Medicine & Rehabilitation Pain Medicine
DX: S72.142D Displaced intertrochanteric fracture of left femur, subsequent encounter for closed fracture with routine healing (principal); E43 Unspecified severe protein-calorie malnutrition; I50.43 Acute on chronic combined systolic (congestive) and diastolic (congestive) heart failure; B37.89 Other sites of candidiasis; E22.2 Syndrome of inappropriate secretion of antidiuretic hormone; R17 Unspecified jaundice; B37.0 Candidal stomatitis; I42.9 Cardiomyopathy, unspecified; Z68.1 Body mass index [BMI] 19.9 or less, adult; N39.0 Urinary tract infection, site not specified; I11.0 Hypertensive heart disease with heart failure; F03.90 Unspecified dementia, unspecified severity, without behavioral disturbance, psychotic disturbance, mood disturbance, and anxiety; W19.XXXD Unspecified fall, subsequent encounter; I25.10 Atherosclerotic heart disease of native coronary artery without angina pectoris; K21.9 Gastro-esophageal reflux disease without esophagitis; Z95.1 Presence of aortocoronary bypass graft; Z95.810 Presence of automatic (implantable) cardiac defibrillator; R26.9 Unspecified abnormalities of gait and mobility; M19.90 Unspecified osteoarthritis, unspecified site; F32.9 Major depressive disorder, single episode, unspecified; R49.0 Dysphonia; R73.9 Hyperglycemia, unspecified; D64.9 Anemia, unspecified; E78.5 Hyperlipidemia, unspecified; E80.4 Gilbert syndrome; E83.51 Hypocalcemia; G47.00 Insomnia, unspecified; H40.9 Unspecified glaucoma; K59.00 Constipation, unspecified; K64.9 Unspecified hemorrhoids; M81.0 Age-related osteoporosis without current pathological fracture; N40.0 Benign prostatic hyperplasia without lower urinary tract symptoms; R62.7 Adult failure to thrive; Z87.891 Personal history of nicotine dependence; Z91.81 History of falling; Z16.12 Extended spectrum beta lactamase (ESBL) resistance; B96.20 Unspecified Escherichia coli [E. coli] as the cause of diseases classified elsewhere
CPT/HCPCS: 36415; 71010; 73501; 82088; 82306; 82533; 83010; 83615; 83735; 84100; 84244; 84300; 84443; 84550; 85025; 87077; 87086; 92523; 92526; 92610; 94640; 94664; 97110; 97112; 97116; 97165; 97530; 97535